=== PATIENT | male | born 2000 | race Two or more races ===

== ENCOUNTER 2024-12-16 23:09 | Emergency (ER) | payer MEDICAID, SELFPAY ==
[2024-12-16 23:15] VITALS: BP 155/94; PULSE 106; RESP 20; TEMP 36.9; O2SAT 97
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
== END 2024-12-16 23:53 ==
LOC: SERX 12-17 01:47
PROVIDERS: Emergency Provider Emergency Medicine
DX: S40.029A Contusion of unspecified upper arm, initial encounter (principal); W19.XXXA Unspecified fall, initial encounter
CPT/HCPCS: 99281